=== PATIENT | male | born 1945 | race Caucasian/White ===

== ENCOUNTER 2017-09-29 07:38 | Emergency (ER) | payer OTHER ==
--- NOTE | 2017-09-29 07:49 | EDPHY ---
H & P Time Seen by Provider: 09/29/17 07:49 HPI/ROS: CHIEF COMPLAINT: Knee injury HISTORY OF PRESENT ILLNESS: Tripped yesterday impacting his bent right knee on flag stone. Presents today with pain which is minimal at rest with leg extended but moderate with any bending of the knee or weight-bearing, that pain is located posteriorly to the knee. Not associated with weakness or numbness in the right foot. No right foot ankle or hip symptoms. No other injuries. REVIEW OF SYSTEMS: Abrasion to the right knee. PAST MEDICAL HISTORY: Diabetes, history of DVT on warfarin, INR last week was therapeutic and no changes to his medications. Right quadriceps tendon rupture, surgically repaired. Social history: Nonsmoker General Appearance: Alert and conversant, cooperative. Good range of motion of the right hip ankle and foot. He has an abrasion to the right knee over the patella. No anterior bony tenderness and stable to varus and valgus stress. Negative Chuck's. Normal motor sensory and dorsalis pedis pulse in the right foot. Patient has pain in the posterior portion of the right knee with flexion to greater than 160, as well as with posterior drawer. Stable to anterior drawer. Normal plantar and dorsiflexion of the foot. Normal extension, quadriceps appears to function normally. Unable to test hamstring function as he has too much pain with active and passive flexion. Emergency Department course/MDM: X-ray of the right knee and immobilizer placed. He has seen Dr. King in the past in [place] for right quadriceps tendon rupture repair. 841: X-ray personally interpreted as negative except for joint effusion, reviewed with the patient. Knee immobilizer and orthopedic follow-up next week. Discussed x-ray with Mely although the patient has no tenderness with palpation over his entire patella, I think the x-ray finding is less likely to be fracture given his clinical examination. X-ray reviewed with the patient including radiology reading. More likely knee abrasion and contusion, coupled with hemarthrosis on warfarin giving him pain on motion of his knee. Smoking Status: Never smoked Constitutional: Initial Vital Signs Temperature (C) 36.6 C 09/29/17 07:49 Heart Rate 72 09/29/17 07:49 Respiratory Rate 16 09/29/17 07:49 Blood Pressure 150/95 H 09/29/17 07:49 O2 Sat (%) 92 09/29/17 07:49 O2 Delivery Mode Room Air Allergies/Adverse Reactions: Sulfa (Sulfonamide Antibiotics) Allergy (Verified 09/29/17 07:47) Home Medications: Medication Instructions Recorded Chlorthalidone 03/16/15 Lantus 100 UNITS/ML (RX) 03/16/15 Losartan Potassium 03/16/15 Metformin HCl 03/16/15 Metoprolol Succinate 03/16/15 Warfarin Sodium 03/16/15 MDM/Departure - MDM Imaging Results: Imaging Impressions Knee X-Ray 09/29/17 08:02 Impression: Possible vertical nondisplaced, lateral third patellar fracture. Results discussed with Dr. Jose Miguel Reyes at 8:44 AM. Negative except for possible lateral 3rd patellar fracture vertically discussed with Mely at 8:44 a.m. Imaging: Discussed imaging studies w/ surgical resident Radiologist, I viewed and interpreted images myself - Depart Disposition: Home, Routine, Self-Care Clinical Impression: Right knee injury Qualifiers: Encounter type: initial encounter Qualified Code(s): S89.91XA - Unspecified injury of right lower leg, initial encounter Condition: Good Instructions: Knee Immobilizer (ED) Additional Instructions: Activity as tolerated. See your orthopedic surgeon next week. Bring computer disk with X-rays on it to your appointment. Referrals: [facility] [Other] - As per Instructions TARA KING [Non Staff Provider (MD)] - As per Instructions (office followup early next week)
[2017-09-29 08:45] VITALS: BP 150/95
== END 2017-09-29 08:57 | disposition home or self-care (01) ==
LOC: CED 07:38
DX: S89.91XA Unspecified injury of right lower leg, initial encounter (principal); E11.9 Type 2 diabetes mellitus without complications; Z79.01 Long term (current) use of anticoagulants; Z79.4 Long term (current) use of insulin; W01.0XXA Fall on same level from slipping, tripping and stumbling without subsequent striking against object, initial encounter
CPT/HCPCS: 73564; 99283; L1830